=== PATIENT | male | born 1960 | race Caucasian/White ===

== ENCOUNTER 2017-03-09 10:03 | Emergency (ER) | payer MEDICARE ==
[2017-03-09] MEDS ORDERED: Sodium Chloride 0.9% 1000 ML 1,000 ML IV SCH (10:15)
--- NOTE | 2017-03-09 10:21 | ERPHSYRPT ---
- History of Present Illness Time Seen by Provider: 03/09/17 10:16 Source: patient Exam Limitations: no limitations Patient Subjective Stated Complaint: pt was not acting right last night 1929, when he contacted a friend,syptoms may have started monday. friend states he is not talking well, comfused,unsteady on feet. has lost weight in last 2 months . no injury Triage Nursing Assessment: pt walked in, slow but steady, resp easy, skin w/d pink, speech garbled,know person,place and time,no facial drooping. air transportation provider strong Physician History: 56-year-old white male arrives stating that he feels like he is confused having problems speaking symptoms for 6 days. Patient is not having problems moving. Past medical history includes diabetes Timing/Duration: day(s) (6 days) Severity: moderate Modifying Factors: Improves With: nothing Associated Symptoms: other (patient having trouble speaking, feels like he is confused), No nausea, No vomiting, No abdominal pain, No shortness of breath, No heartburn, No diaphoresis, No cough, No chills, No chest pain, No fever, No headaches, No loss of appetite, No malaise, No rash, No syncope, No seizure, No weakness Allergies/Adverse Reactions: No Known Drug Allergies Allergy (Unverified 03/09/17 10:18) Home Medications: No Reportable Medications [No Reported Medications] 03/09/17 [History] Hx Influenza Vaccination/Date Given: No Hx Pneumococcal Vaccination/Date Given: No Immunizations Up to Date: Yes - Review of Systems Constitutional: No Fever, No Chills Eyes: No Symptoms, No Discharge, No Eye Pain, No Eye Redness, No Itchy, No Photophobia, No Tearing, No Vision Changes, No Double Vision, No Foreign Body Sensation Ears, Nose, & Throat: No Symptoms, No Ear Pain, No Ear Discharge, No Hearing Changes, No Tinnitus, No Nose Pain, No Nose Congestion, No Nose Discharge, No Sinus Drainage, No Epistaxis, No Mouth Pain, No Mouth Swelling, No Loose Teeth, No Throat Pain, No Throat Swelling, No Hoarse, No Painful Swallowing, No Snoring , No Stridor Respiratory: No Cough, No Dyspnea Cardiac: No Chest Pain, No Edema, No Syncope Abdominal/Gastrointestinal: No Abdominal Pain, No Nausea, No Vomiting, No Diarrhea Genitourinary Symptoms: No Dysuria Musculoskeletal: No Back Pain, No Neck Pain Skin: No Rash Neurological: Other (patient was she having trouble speaking feels like he is confused) Psychological: No Symptoms Endocrine: No Symptoms All Other Systems: Reviewed and Negative - Past Medical History Pertinent Past Medical History: Yes Endocrine Medical History: Diabetes Type II - Past Surgical History Past Surgical History: Yes Gastrointestinal: Appendectomy Other Surgical History: neck surg - Social History Smoking Status: Current every day smoker Exposure to second hand smoke: Yes Drug Use: none Patient Lives Alone: No - Nursing Vital Signs Nursing Vital Signs: Initial Vital Signs Temperature 97.4 F 03/09/17 10:06 Pulse Rate 80 03/09/17 10:06 Respiratory Rate 16 03/09/17 10:06 Blood Pressure 130/72 03/09/17 10:06 O2 Sat by Pulse Oximetry 97 03/09/17 10:06 Pain Scale Pain Intensity 0 - Physical Exam General Appearance: other (well-developed lumbar nurse white male abnormal speech pattern but able to answer questions well) Eye Exam: PERRL/EOMI, eyes nml inspection Ears, Nose, Throat Exam: normal ENT inspection, TMs normal, pharynx normal, moist mucous membranes Neck Exam: normal inspection, non-tender, supple, full range of motion Respiratory Exam: normal breath sounds, lungs clear, No respiratory distress Cardiovascular Exam: regular rate/rhythm, normal heart sounds, normal peripheral pulses Gastrointestinal/Abdomen Exam: soft, normal bowel sounds, No tenderness, No mass Back Exam: normal inspection, normal range of motion, No CVA tenderness, No vertebral tenderness Extremity Exam: normal inspection, normal range of motion, pelvis stable Neurologic Exam: alert, oriented x 3, merchandise support associate II-XII nml as tested, other (patient alert oriented 3, able to answer questions well, abnormal speech pattern, cranial nurse 2 through 12 intact air transportation provider equal 5 over 5 trouble with finger to nose on the left moves all extremities) Skin Exam: normal color, warm, dry, No rash Lymphatic Exam: No adenopathy SpO2 Interpretation: normal Oxygen Delivery: Room Air - Course Nursing assessment & vital signs reviewed: Yes EKG Interpreted by Me: RATE (87 bpm), Sinus Rhythm, NORMAL AXIS, Other (EKG: Sinus rhythm, 87 bpm, normal axis, no acute ST or T wave changes, essentially normal EKG) - Radiology Exams Chest X-ray Interpretation: Discussed w/ radiologist (chest x-ray: Normal heart, lung , bony thorax) - CT Exams Head CT Interpretation: Discussed w/radiologist (head CT: Suspect left basal ganglia acute ischemia, better evaluated with MRI. No acute hemorrhage or mass effect) Ordered Tests: Active Orders 24 hr Category Date Time Status Accucheck STAT Care 03/09/17 10:14 Active Rn Women Services STAT Care 03/09/17 10:15 Active EKG-ER Only STAT Care 03/09/17 10:14 Active IV Insertion STAT Care 03/09/17 10:14 Active Pulse Oximetry (ED) STAT Care 03/09/17 10:14 Active CHEST 1 VIEW (PORTABLE) Stat Exams 03/09/17 10:15 Completed HEAD WITHOUT CONTRAST [CT] Stat Exams 03/09/17 10:15 Completed CBC W DIFF Stat Lab 03/09/17 10:20 Completed CMP Stat Lab 03/09/17 10:20 Completed PROTIME WITH INR Stat Lab 03/09/17 10:20 Completed PTT Stat Lab 03/09/17 10:20 Completed Medication Summary Generic Name Dose Route Start Last Admin Trade Name Freq PRN Reason Stop Dose Admin Sodium Chloride 1,000 mls @ 100 mls/hr 03/09/17 10:15 03/09/17 10:47 Sodium Chloride 0.9% 1000 Ml IV 04/08/17 10:14 100 mls/hr .Q10H FABIANA Administration Discontinued Medications Generic Name Dose Route Start Last Admin Trade Name Freq PRN Reason Stop Dose Admin Aspirin 162 mg 03/09/17 12:07 Baby Aspirin 81 Mg Chew PO 03/09/17 12:08 STAT ONE Lab/Rad Data: Laboratory Result Diagrams 03/09/17 10:20 03/09/17 10:20 Laboratory Results 03/09/17 03/09/17 03/09/17 Range/Units 10:20 10:20 10:20 WBC 9.0 (4.0-10.5) K/mm3 RBC 5.57 (4.1-5.6) M/mm3 Hgb 16.8 (12.5-18.0) gm/dl Hct 50.1 H (42-50) % MCV 89.9 (78-100) fl MCH 30.2 (26-32) pg MCHC 33.5 (32-36) g/dl RDW 13.0 (11.5-14.0) % Plt Count 268 (150-450) K/mm3 MPV 9.9 H (6-9.5) fl Gran % 64.4 (36.0-66.0) % Lymphocytes % 27.2 (24.0-44.0) % Monocytes % 7.4 (0.0-12.0) % Eosinophils % 0.0 (0.00-5.0) % Basophils % 1.0 (0.0-0.4) % Basophils # 0.09 (0-0.4) INR 0.93 (0.8-3.0) APTT 41.6 H (24.1-36.1) SECONDS Sodium 134 L (136-145) mEq/L Potassium 4.0 (3.5-5.1) mEq/L Chloride 97 L (98-107) mEq/L Carbon Dioxide 29.2 (21-32) mEq/L Anion Gap 11.6 (5-15) MEQ/L BUN 11 (9-20) mg/dL Creatinine 0.96 (0.55-1.30) mg/dl Estimated GFR > 60 ML/MIN Glucose 316 H (70-110) MG/DL Calcium 9.2 (8.5-10.1) mg/dL Total Bilirubin 0.50 (0.2-1.0) mg/dL AST 12 L (15-37) U/L ALT 24 (12-78) U/L Alkaline Phosphatase 109 (46-116) U/L Serum Total Protein 8.5 H (6.4-8.2) gm/dL Albumin 4.2 (3.4-5.0) g/dL - Progress Progress: improved Progress Note: 03/09/17 12:08 This is a 56-year-old white male with history of high blood pressure diabetes he is complaining of problems with his speech for 6 days he states that he feels confused. Patient unable to do finger to nose on the left he is also has a very strange speech pattern very slow to be able to get his words out but he is oriented and alert. Head CT shows impression suspect left basal ganglia acute ischemia better evaluated with MRI no acute hemorrhage or mass effect. I've contacted Dr. Ruano who feels that the patient would be best evaluated by a neurologist. I contacted [facility] who states they have no neurologist available. I contacted at [facility] discussed the patient with him he's excepted the patient for transfer. - Departure Time of Disposition: 12:10 Departure Disposition: Transfer ([facility] Dr Cho) Clinical Impression: Speech disorder CVA (cerebral vascular accident) Qualifiers: CVA mechanism: unspecified Qualified Code(s): I63.9 - Cerebral infarction, unspecified Condition: Fair Critical Care Time: No
[2017-03-09 10:27] LABS: Granulocytes % 64.4 % (36.0-66.0); Lymphocytes % 27.2 % (24.0-44.0); Mean Cell Volume 89.9 fl (78-100); Mean Corpuscular Hemoglobin 30.2 pg (26-32); Mean Platelet Volume 9.9 fl (6-9.5); Monocytes % 7.4 % (0.0-12.0); Platelet Count 268 K/mm3 (150-450); Red Blood Count 5.57 M/mm3 (4.1-5.6)
--- NOTE | 2017-03-09 10:40 | XRAY ---
Indication: Stroke like symptoms. Comparison: None Portable chest demonstrates normal heart, lungs, and bony thorax.
[2017-03-09] MEDS ORDERED: Sodium Chloride 0.9% 1000 ML 1,000 ML ONE (10:45)
[2017-03-09 10:46] LABS: ALBUMIN 4.2 g/dL (3.4-5.0); ALKALINE PHOSPHATASE 109 U/L (46-116); ANION GAP 11.6 MEQ/L (5-15); BLOOD UREA NITROGEN 11 mg/dL (9-20); CHLORIDE 97 mEq/L (98-107); Carbon Dioxide 29.2 mEq/L (21-32); Glucose 316 MG/DL (70-110); SGOT/AST 12 U/L (15-37); SGPT/ALT 24 U/L (12-78); SODIUM 134 mEq/L (136-145); Total Protein 8.5 gm/dL (6.4-8.2)
--- NOTE | 2017-03-09 10:46 | XRAY ---
Indication: Confusion and difficulty speaking for 5 days. Stroke like symptoms. Multiple contiguous axial images obtained through the head without contrast. Comparison: None There is a 1.5 x 2.5 cm focus of hypoattenuation in the left basal ganglia probable acute ischemia. No acute hemorrhage or mass effect. Fourth ventricle is midline without hydrocephalus. Bony calvarium intact. Visualized paranasal sinuses and mastoid air cells are clear. Impression: Suspect left basal ganglia acute ischemia better evaluated with MRI. No acute hemorrhage or mass effect. CTDI 69.11
[2017-03-09 10:59] LABS: INR 0.93 (0.8-3.0); PROTIME 10.3 SECONDS (8.83-12.87)
[2017-03-09 11:02] LABS: PTT 41.6 SECONDS (24.1-36.1)
[2017-03-09 11:40] VITALS: BP 127/70
[2017-03-09 11:57] VITALS: PULSE 82; O2SAT 97
[2017-03-09] MEDS ORDERED: BABY ASPIRIN 81 MG CHEW PO ONE (12:07)
[2017-03-09] MEDS ORDERED: ASPIRIN 600 MG PR ONE (12:15)
[2017-03-09] MEDS ORDERED: ASPIRIN 600 MG ONE (12:20)
== END 2017-03-09 13:02 | disposition short-term general hospital (02) ==
LOC: ED 10:03
DX: I63.9 Cerebral infarction, unspecified (principal); R47.9 Unspecified speech disturbances; E11.9 Type 2 diabetes mellitus without complications; R41.0 Disorientation, unspecified
CPT/HCPCS: 36000; 36415; 70450; 71010; 80053; 82962; 85025; 85610; 85730; 93005; 93041; 96360; 99285; A9270-GY